=== PATIENT | female | born 1995 | race Caucasian/White ===

== ENCOUNTER 2017-01-28 14:19 | Inpatient (IN) | payer OTHER ==
[2017-01-28] VITALS (17 sets, daily range): BP systolic 107–124; BP diastolic 58–72; PULSE 71–102; RESP 18–20; TEMP 97.8–98.5
[~2017-01-28] VITALS: Ht 165.1 cm; Wt 72.1 kg
[~2017-01-28 14:19] MED LIST: PREN29TA PO
--- NOTE | 2017-01-28 14:30 | PD ---
HPI Chief Complaint Contractions Date Seen: Jan 28, 2017 (Ziggy Johnson MD R1) Travel History International Travel<30 Days: No Contact w/Intl Traveler<30Days: No (Ziggy Johnson MD R1) History of Present Illness HPI 21-year-old at 40 weeks gestation presenting with contractions. Denies vaginal bleeding, leakage of fluid. Endorses positive movement. She did note loss of her mucous plug as well. Contractions started midmorning this morning and progressed in frequency and intensity until shortly prior to presentation. Contractions are now about every 10 minutes apart per patient. Denies chest pain, shortness of breath, dysuria. (Ziggy Johnson MD R1) History Past Medical History Medical History: Denies Significant Hx (Ziggy Johnson MD R1) Obstetric History Obstetric History Prior delivered vaginally at term without complication (Ziggy Johnson MD R1) Past Surgical History Narrative Surgical Tonsillectomy in childhood (Ziggy Johnson MD) Family History Family History: Negative (Ziggy Johnson MD) Social History Alcohol Use: No Tobacco Use: No (quit smoking about a month and half ago, prior to this smoked one half pack per day) Substance Abuse: No (Ziggy Johnson MD R1) Allergies-Medications (Allergen,Severity, Reaction): Coded Allergies: No Known Allergies (Unverified , 01/27/17) Home Meds Reported Medications Vit-Iron Carbonyl ( Plus Iron 29-1 mg)1 Tab Tab1 Tab PO DAILY #30 TAB Ref 0 11/04/16 Review of Systems Except as stated in HPI: all other systems reviewed are Neg (Ziggy Johnson MD R1) Physical Exam Narrative GENERAL: Well-nourished, well-developed patient. SKIN: Warm and dry. HEAD: Normocephalic and atraumatic. EYES: No scleral icterus. No injection or drainage. ENT: No nasal drainage noted. Mucous membranes pink. Airway patent. CARDIOVASCULAR: Regular rate and rhythm without murmurs, gallops, or rubs. RESPIRATORY: Breath sounds equal bilaterally. No accessory muscle use. ABDOMEN/GI: Abdomen soft, non-tender, no rebound, no guarding GENITOURINARY: Cervix: midposition Dilation: 5-6 cm Effacement: 60% Presentation: vertex Membranes: intact Contractions: regular every 5-6 mins FHT's: Category: 1 Baseline: 120 Reactive: Y Variability: moderate Decels: N EXTREMITIES: No cyanosis or edema. NEUROLOGICAL: Awake and alert. Motor and sensory grossly within normal limits. Normal speech. (Ziggy Johnson MD R1) Data Data Vital Signs Reviewed: Yes (Ziggy Johnson MD R1) MDM Medical Record Reviewed: Yes Narrative Course / MDM 21-year-old presenting with contractions #1 IUP Category 1 tracing, reassuring - Continuous monitoring #2 GBS negative No need for intrapartum antibiotic prophylaxis #3 Rh negative Received RhoGAM in office #4 labor Cervix dilated from 3 cm to 5-6 cm over one day, having regular contractions - Admit to labor and delivery - Fentanyl for pain control - Zofran as needed for nausea and vomiting - Vitals per protocol - Clear liquid diet - Out of bed ad neha (Ziggy Johnson MD R1) Attending Attestation The exam, history, and the medical decision-making described in the above note were completed with the assistance of the resident provider. I reviewed and agree with the findings presented. I attest that I had a [id number] encounter with the patient on the same day, and personally performed and documented my assessment and findings in the medical record. (Samantha Zarco MD) Diagnosis Diagnosis: Primary Impression: Normal labor Ziggy Johnson MD R1 Jan 28, 2017 14:30 Samantha Zarco MD Jan 28, 2017 15:07
[2017-01-28] MEDS ORDERED: LACTATED RINGER'S 1000 ML INJ 1,000 ML IV PRN (14:49)
[2017-01-28] MEDS ORDERED: LACTATED RINGER'S 1000 ML INJ 1,000 ML IV SCH (14:49)
--- NOTE | 2017-01-28 14:58 | HHI.HP ---
History & Physical H&P HPI HPI Chief Complaint Contractions Date Seen: Jan 28, 2017 Travel History International Travel<30 Days: No Contact w/Intl Traveler<30Days: No History of Present Illness HPI 21-year-old at 40 weeks gestation presenting with contractions. Denies vaginal bleeding, leakage of fluid. Endorses positive movement. She did note loss of her mucous plug as well. Contractions started midmorning this morning and progressed in frequency and intensity until shortly prior to presentation. Contractions are now about every 10 minutes apart per patient. Denies chest pain, shortness of breath, dysuria. History (Limited) History Past Medical History Medical History: Denies Significant Hx Obstetric History Obstetric History Prior delivered vaginally at term without complication Past Surgical History Narrative Surgical Tonsillectomy in childhood Family History Family History: Negative Social History Alcohol Use: No Tobacco Use: No (quit smoking about a month and half ago, prior to this smoked one half pack per day) Substance Abuse: No Allergies-Medications Allergies-Medications (Allergen,Severity, Reaction): Coded Allergies: No Known Allergies (Unverified , 01/27/17) Home Meds Reported Medications Vit-Iron Carbonyl ( Plus Iron 29-1 mg)1 Tab Tab1 Tab PO DAILY #30 TAB Ref 0 11/04/16 ROS Review of Systems Except as stated in HPI: all other systems reviewed are Neg Physical Exam Physical Exam Narrative GENERAL: Well-nourished, well-developed patient. SKIN: Warm and dry. HEAD: Normocephalic and atraumatic. EYES: No scleral icterus. No injection or drainage. ENT: No nasal drainage noted. Mucous membranes pink. Airway patent. CARDIOVASCULAR: Regular rate and rhythm without murmurs, gallops, or rubs. RESPIRATORY: Breath sounds equal bilaterally. No accessory muscle use. ABDOMEN/GI: Abdomen soft, non-tender, no rebound, no guarding GENITOURINARY: Cervix: midposition Dilation: 5-6 cm Effacement: 60% Presentation: vertex Membranes: intact Contractions: regular every 5-6 mins FHT's: Category: 1 Baseline: 120 Reactive: Y Variability: moderate Decels: N EXTREMITIES: No cyanosis or edema. NEUROLOGICAL: Awake and alert. Motor and sensory grossly within normal limits. Normal speech. Data Data Data Vital Signs Reviewed: Yes MDM MDM Medical Record Reviewed: Yes Narrative Course / MDM 21-year-old presenting with contractions #1 IUP Category 1 tracing, reassuring - Continuous monitoring #2 GBS negative No need for intrapartum antibiotic prophylaxis #3 Rh negative Received RhoGAM in office #4 labor Cervix dilated from 3 cm to 5-6 cm over one day, having regular contractions - Admit to labor and delivery - Fentanyl for pain control - Zofran as needed for nausea and vomiting - Vitals per protocol - Clear liquid diet - Out of bed ad neha Diagnosis Diagnosis: Primary Impression: Normal labor (Ziggy Johnson MD R1) H&P The exam, history, and the medical decision-making described in the above note were completed with the assistance of the resident provider. I reviewed and agree with the findings presented. I attest that I had a [id number] encounter with the patient on the same day, and personally performed and documented my assessment and findings in the medical record. (Samantha Zarco MD) Ziggy Johnson MD R1 Jan 28, 2017 14:58 Samantha Zarco MD Jan 28, 2017 15:08
[2017-01-28] MEDS ORDERED: OXYTOCIN 30 UNITS-500ML PREMIX 500 ML IV ONE (15:00)
[2017-01-28] MEDS ORDERED: MINERAL OIL 10 ML VIAL TOPICAL PRN (15:00)
[2017-01-28] MEDS ORDERED: ONDANSETRON HCL 4 MG/2 ML VIAL IV PRN (15:00)
[2017-01-28] MEDS ORDERED: SODIUM CHLORID 0.9% 500 ML INJ 500 ML IV PRN (15:00)
[2017-01-28] MEDS ORDERED: CITRIC ACID-SODIUM CITRATE LIQ 30 ML UDC PO SCH (15:00)
[2017-01-28] MEDS ORDERED: LIDOCAINE HCL 1% 50 ML VIAL INFIL PRN (15:00)
[2017-01-28] MEDS ORDERED: LIDOCAINE HCL 1% 50 ML VIAL I-DERMAL PRN (15:00)
[2017-01-28] MEDS ORDERED: SODIUM CHLOR 0.9% 1000 ML INJ 1,000 ML IV PRN (15:09)
[2017-01-28 15:35] LABS: AUTOMATED NEUTROPHIL # 12.6 TH/MM3 (1.8-7.7); BASOPHIL # 0.1 TH/MM3 (0-0.2); BASOPHIL % 0.6 % (0.0-2.0); EOSINOPHIL # 0.1 TH/MM3 (0-0.4); EOSINOPHIL % 0.3 % (0.0-4.0); HEMATOCRIT 35.8 % (35.0-46.0); HEMO FLAGS DIFF FINAL; LYMPH % 15.1 % (9.0-44.0); LYMPHOCYTE # 2.5 TH/MM3 (1.0-4.8); MEAN CELL VOLUME 93.7 FL (80.0-100.0); MEAN CORPUSCULAR HEMOGLOBIN 32.5 PG (27.0-34.0); MEAN CORPUSCULAR HGB CONC 34.6 % (32.0-36.0); MONO % 9.1 % (0.0-8.0); NEUT % 74.9 % (16.0-70.0); PLATELET COUNT 200 TH/MM3 (150-450); RED BLOOD COUNT 3.81 MIL/MM3 (4.00-5.30); RED CELL DISTRIBUTION WIDTH 12.8 % (11.6-17.2); WHITE BLOOD COUNT 16.8 TH/MM3 (4.0-11.0)
[2017-01-28 15:43] LABS: BACTERIA, URINE RARE /hpf; BLOOD, URINE SMALL (NEG); COMMENT (UR) CULTURE INDICATED; CULTURE IF INDICATED CULTURE INDICATED; GLUCOSE,URINE NEG (NEG); KETONE, URINE NEG (NEG); MUCUS URINE FEW /lpf (OCC); NITRITE,URINE NEG (NEG); SQUAMOUS EPITHELIAL CELL URINE 14 /hpf (0-5); URINE COLOR YELLOW (YELLW/STRAW)
[2017-01-28] MEDS ORDERED: DIPHTH/TETANUS/ACEL PERTUSSIS (BOOSTER) 0.5 ML VIAL/PFS IM ONE (16:00)
[2017-01-28] MEDS ORDERED: MEASLES, MUMPS, RUBELLA VACCINE 0.5 ML VIAL SQ ONE (16:00)
--- NOTE | 2017-01-28 16:48 | PD.LABORPN ---
Subjective Subjective Sitting in bed in mild to moderate discomfort. Breathing well, no concerns. Objective Vital Signs Vital Signs Date Time Temp Pulse Resp B/P Pulse Ox O2 Delivery O2 Flow Rate FiO2 01/28/17 15:00 96 01/28/17 14:55 98 01/28/17 14:50 96 01/28/17 14:45 97 01/28/17 14:40 102 01/28/17 14:37 98.5 18 01/28/17 14:35 101 01/28/17 14:34 94 114/72 Objective Pelvic Exam: Cervix: anterior Dilatation: 7 Effacement: 70% Station: -1 Presentation: Vertex Membranes: Intact Uterine Contractions: Regular every 5 mins FHT's: Category: 1 Baseline: 110 Reactive: Y Variability: moderate Decels: N Assessment/Plan Assessment and Plan 21-year-old in labor #1 IUP Category 1 tracing, reassuring - Continuous monitoring #2 GBS negative No need for intrapartum antibiotic prophylaxis #3 Rh negative Received RhoGAM in office #4 labor Cervix dilated from 3 cm to 5-6 cm over one day, having regular contractions - Continue routine labor care - Fentanyl for pain control - Zofran as needed for nausea and vomiting - Vitals per protocol - Clear liquid diet - Out of bed ad neha while tracing category 1 Ziggy Johnson MD R1 Jan 28, 2017 16:48
--- NOTE | 2017-01-28 20:59 | PD.OB.DELI ---
Delivery Date: Jan 28, 2017 Anesthesia: None Episiotomy: None Vaginal Delivery: Normal Presentation: Occiput anterior, Vertex Nuchal Cord: None Delayed cord clamping (45 sec): Yes Infant: Male One Minute : 9 Five Minute : 9 Weight: [id number] Placenta: Spontaneous delivery Laceration: 1 deg (manual pressure with no repair required) Additional Information Delivered at [address] Lu, assisted by Dr White and supervised by Dr Zarco. (Levon Lu MD R1) Attestation I was present and directly participated/supervised the entire delivery procedure. (Samantha Zarco MD) Levon Lu MD R1 Jan 28, 2017 20:58 Samantha Zarco MD Jan 28, 2017 21:03
[2017-01-28] MEDS ORDERED: SODIUM CHLORIDE 0.9% FLUSH 10 ML FLUSH IV FLUSH PRN (21:00)
[2017-01-28] MEDS ORDERED: oxyCODONE/ACETAMINOPHEN 5 MG/325 MG TAB PO PRN (21:00)
[2017-01-28] MEDS ORDERED: ONDANSETRON ODT 4 MG TAB PO PRN (21:00)
[2017-01-28] MEDS ORDERED: ALUMINUM/MAGNESIUM/SIMETH 30 ML CUP PO PRN (21:00)
[2017-01-28] MEDS ORDERED: SODIUM CHLORIDE 0.9% FLUSH 10 ML FLUSH IV FLUSH SCH (21:00)
[2017-01-28] MEDS ORDERED: BENZOCAINE 20% TOPICAL SPRAY 60 ML CAN TOPICAL PRN (21:00)
[2017-01-28] MEDS ORDERED: WITCH HAZEL 50%/GLYCERIN 12.5% 40 PAD JAR TOPICAL PRN (21:00)
[2017-01-28] MEDS ORDERED: ZOLPIDEM TARTRATE 5 MG TAB PO PRN (21:00)
[2017-01-29] MEDS: oxyCODONE/ACETAMINOPHEN 5 MG/325 MG TAB PO PRN ×4 (01:50→15:12)
[2017-01-29] MEDS: DOCUSATE SODIUM 50 MG/SENNA 8.6 MG TAB PO PRN ×2 (06:34→22:19)
[2017-01-29] MEDS: IBUPROFEN 600 MG TAB PO PRN ×3 (06:34→22:19)
[2017-01-29 07:25] VITALS: BP 107/60; PULSE 74; RESP 16; TEMP 98.2
[2017-01-29] MEDS ORDERED: diphenhydrAMINE HCL 25 MG CAP PO ONE (08:00)
--- NOTE | 2017-01-29 08:16 | HHI.OB ---
Subjective Post Day: 1 Remarks 21 year old female s/p at 40 wks gestation, PPD 1. AFVSS. Patient reports she is feeling well. Bleeding is decreasing and pain is well- controlled. She is breast feeding and bonding well with baby. Ambulating without difficulties. She is tolerating a diet without nausea or vomiting. She has not had a bowel movement. She has passed gas. Denies chest pain, dysuria, shortness of breath, or calf pain. (Ziggy Johnson MD R1) Objective Vitals/I&O Vital Signs Date Time Temp Pulse Resp B/P Pulse Ox O2 Delivery O2 Flow Rate FiO2 01/28/17 22:45 98.2 72 20 107/67 01/28/17 21:45 78 119/59 01/28/17 21:45 18 01/28/17 21:30 80 18 116/62 01/28/17 21:15 18 01/28/17 21:01 83 120/58 01/28/17 21:00 124/60 01/28/17 21:00 77 124/60 01/28/17 21:00 97.8 18 01/28/17 19:07 97.9 18 01/28/17 19:05 80 121/64 01/28/17 17:40 71 112/66 01/28/17 15:00 96 01/28/17 14:55 98 01/28/17 14:50 96 01/28/17 14:45 97 01/28/17 14:40 102 01/28/17 14:37 98.5 18 01/28/17 14:35 101 01/28/17 14:34 94 114/72 Objective Remarks GENERAL: Well-nourished, well-developed patient. CARDIOVASCULAR: Regular rate and rhythm without murmurs, gallops, or rubs. RESPIRATORY: Breath sounds equal bilaterally. No accessory muscle use. ABDOMEN/GI: Abdomen soft, non-tender. Fundus: Firm, non-tender at umbilicus. GENITOURINARY: Light to moderate bleeding. EXTREMITIES: No cyanosis or edema, non-tender, without signs of DVT. Medications and IVs Current Medications Medications (Trade) Dose Ordered Sig/Costa Route Start Time Stop Time Status Last Admin (NS Flush) 2 ml BID IV FLUSH 01/28/17 21:00 (NS Flush) 2 ml UNSCH PRN IV FLUSH 01/28/17 21:00 (Tylenol) 650 mg Q4H PRN PO 01/28/17 21:00 (Motrin) 600 mg Q6H PRN PO 01/28/17 21:00 01/29/17 06:34 (Percocet 5-325 Mg) 1 tab Q4H PRN PO 01/28/17 21:00 (Percocet 5-325 Mg) 2 tab Q4H PRN PO 01/28/17 21:00 01/29/17 06:34 (Americaine 20% Top Spr) 1 spray Q4H PRN TOPICAL 01/28/17 21:00 01/28/17 23:12 (Tucks Pads) 1 applic QID PRN TOPICAL 01/28/17 21:00 01/28/17 23:12 (Daphnie-Colace) 2 tab Q12H PRN PO 01/28/17 21:00 01/29/17 06:34 (Ambien) 5 mg HS PRN PO 01/28/17 21:00 (Mag-Al Plus Susp Liq) 15 ml Q8H PRN PO 01/28/17 21:00 (Zofran Odt) 4 mg Q6H PRN PO 01/28/17 21:00 (Benadryl) 25 mg ONCE ONCE PO 01/29/17 08:00 01/29/17 08:01 UNV (Benadryl) 25 mg UNSCH PRN PO 01/29/17 08:00 UNV (Ziggy Johnson MD R1) Assessment/Plan Assessment and Plan 21 yo female s/p , PPD 1 - AFVSS - UA suggestive of possible UTI; urine culture pending - Continue routine care - Motrin PRN pain - Encourage OOB - Pelvic rest x 6 wks - Contraception: Undecided - Anticipate D/C 01/30 (Ziggy Johnson MD R1) Attending Attestation The exam, history, and the medical decision-making described in the above note were completed with the assistance of the resident provider. I reviewed and agree with the findings presented. I attest that I had a [id number] encounter with the patient on the same day, and personally performed and documented my assessment and findings in the medical record. (Samantha Zarco MD) Ziggy Johnson MD R1 Jan 29, 2017 08:16 Samantha Zarco MD Jan 29, 2017 09:22
[2017-01-29] MEDS: diphenhydrAMINE HCL 25 MG CAP PO PRN ×2 (16:34→22:19)
[2017-01-29 19:25] VITALS: BP 92/55; PULSE 64; RESP 14; TEMP 97.7
[2017-01-30] MEDS: IBUPROFEN 600 MG TAB PO PRN ×2 (06:09→06:14)
[2017-01-30] MEDS: ACETAMINOPHEN 325 MG TAB PO PRN ×2 (06:09→10:52)
[2017-01-30] MEDS ORDERED: IBUP-232 PO (08:26)
--- NOTE | 2017-01-30 08:27 | HHI.DCPOC ---
Discharge Care Plan Diagnosis: (1) Normal vaginal delivery Report Symptoms to Your Doctor -Temperature above 100.5 degrees -Redness, of incision or excessive or foul smelling drainage -Unusual pain or calf pain -Increased vaginal bleeding -Painful or difficulty urinating -Feelings of extreme sadness or anxiety after 2 weeks Goals to Promote Your Health * To prevent worsening of your condition and complications * To maintain your health at the optimal level Directions to Meet Your Goals Take your medications as prescribed Follow your dietary instruction Follow activity as directed Ensure plenty of rest for recovery Drink fluids for hydration Keep your appointments as scheduled Take your immunizations and boosters as scheduled If your symptoms worsen call your PCP, if no PCP go to Urgent Care Center or Emergency Room Smoking is Dangerous to Your Health. Avoid second hand smoke Call the 24-hour crisis hotline for domestic abuse at Ziggy Johnson MD R1 Jan 30, 2017 08:27
--- NOTE | 2017-01-30 08:32 | HHI.OB ---
Subjective Post Day: 2 Remarks 21 year old female s/p at 40 wks gestation, PPD 2. AFVSS. Patient reports she is feeling well. Bleeding is decreasing and pain is well- controlled. She is breast feeding and bonding well with baby. Ambulating without difficulties. She is tolerating a diet without nausea or vomiting. She has not had a bowel movement. She has passed gas. Denies chest pain, dysuria, shortness of breath, or calf pain. Objective Vitals/I&O Vital Signs Date Time Temp Pulse Resp B/P Pulse Ox O2 Delivery O2 Flow Rate FiO2 01/29/17 19:25 64 14 01/29/17 19:25 97.7 01/29/17 19:25 92/55 Objective Remarks GENERAL: Well-nourished, well-developed patient. CARDIOVASCULAR: Regular rate and rhythm without murmurs, gallops, or rubs. RESPIRATORY: Breath sounds equal bilaterally. No accessory muscle use. ABDOMEN/GI: Abdomen soft, non-tender. Fundus: Firm, non-tender at umbilicus. GENITOURINARY: Light to moderate bleeding. EXTREMITIES: No cyanosis or edema, non-tender, without signs of DVT. Medications and IVs Current Medications Medications (Trade) Dose Ordered Sig/Costa Route Start Time Stop Time Status Last Admin (NS Flush) 2 ml BID IV FLUSH 01/28/17 21:00 (NS Flush) 2 ml UNSCH PRN IV FLUSH 01/28/17 21:00 (Tylenol) 650 mg Q4H PRN PO 01/28/17 21:00 01/30/17 06:09 (Motrin) 600 mg Q6H PRN PO 01/28/17 21:00 01/30/17 06:14 (Percocet 5-325 Mg) 1 tab Q4H PRN PO 01/28/17 21:00 01/29/17 22:19 (Percocet 5-325 Mg) 2 tab Q4H PRN PO 01/28/17 21:00 01/29/17 15:12 (Americaine 20% Top Spr) 1 spray Q4H PRN TOPICAL 01/28/17 21:00 01/28/17 23:12 (Tucks Pads) 1 applic QID PRN TOPICAL 01/28/17 21:00 01/28/17 23:12 (Daphnie-Colace) 2 tab Q12H PRN PO 01/28/17 21:00 01/29/17 22:19 (Ambien) 5 mg HS PRN PO 01/28/17 21:00 (Mag-Al Plus Susp Liq) 15 ml Q8H PRN PO 01/28/17 21:00 (Zofran Odt) 4 mg Q6H PRN PO 01/28/17 21:00 (Benadryl) 25 mg UNSCH PRN PO 01/29/17 08:00 01/29/17 22:19 Assessment/Plan Assessment and Plan 21 yo female s/p , PPD 2 - AFVSS - UA suggestive of possible UTI; urine culture grew 10-50,000 CFU/mL mixed GPC, likely contaminant - Continue routine care - Motrin PRN pain - Encourage OOB - Pelvic rest x 6 wks - Contraception: Undecided - Discharge home today Ziggy Johnson MD R1 Jan 30, 2017 08:32
[2017-01-30 09:00] VITALS: BP 114/71; PULSE 74; RESP 14; TEMP 98.1
== END 2017-01-30 13:19 | disposition home or self-care (01) | DRG 775 ==
LOC: HOBED 14:19 → H2EB 14:51 → H2EA 14:57 → H1EA 22:44
PROVIDERS: ADMIT Obstetrics & Gynecology; ATTEND Obstetrics & Gynecology
PROC: 10E0XZZ Delivery of Products of Conception, External Approach (ICD-10-PCS; principal; 2017-01-28)
DX: O70.0 First degree perineal laceration during delivery (principal); Z37.0 Single live birth; Z3A.40 40 weeks gestation of pregnancy
CPT/HCPCS: 81001; 85025; 85461; 86850; 86900; 86901; 87086; 90384; 90715; J2405; J2790; J3010; J7120